=== PATIENT | male | born 1995 | race Caucasian/White ===

== ENCOUNTER 2016-11-14 20:42 | Emergency (ER) | payer BC ==
[~2016-11-14 20:42] MED LIST: AMOXICILLIN875 MG PO; ASPIR-TRIN325 M1 PO; BACTRIM DS TAB1 EACH PO
[2016-11-14 22:08] VITALS: BP 110/74
== END 2016-11-14 22:08 | disposition home or self-care (01) ==
LOC: ED 20:42
DX: S13.9XXA Sprain of joints and ligaments of unspecified parts of neck, initial encounter (principal); X50.1XXA Overexertion from prolonged static or awkward postures, initial encounter

== ENCOUNTER 2017-03-24 17:50 | Emergency (ER) | payer BC ==
[~2017-03-24] VITALS: Ht 177.8 cm; Wt 67.8 kg
[2017-03-24] MEDS ORDERED: PANTOPRAZOLE SO40 MG PO (18:01)
[2017-03-24 21:23] VITALS: BP 120/76
== END 2017-03-24 21:23 | disposition home or self-care (01) ==
LOC: ED 17:50
DX: R11.2 Nausea with vomiting, unspecified (principal); R10.12 Left upper quadrant pain; R10.13 Epigastric pain; Z87.11 Personal history of peptic ulcer disease; K59.00 Constipation, unspecified
CPT/HCPCS: C9113; J7030

== ENCOUNTER → 2017-09-29 | Outpatient (CLI) | payer BC ==
[~2017-09-29] MED LIST changes: +PANTOPRAZOLE SO40 MG PO
== END ==
LOC: LAB 13:38
DX: J02.8 Acute pharyngitis due to other specified organisms (principal)

== ENCOUNTER 2017-12-01 11:30 | Outpatient (RCR) | payer OTHER | END 2017-12-01 12:00 | disposition home or self-care (01) | LOC: PT 11:30 | DX: S93.401D Sprain of unspecified ligament of right ankle, subsequent encounter (principal); W01.0XXD Fall on same level from slipping, tripping and stumbling without subsequent striking against object, subsequent encounter; W17.2XXD Fall into hole, subsequent encounter; Y99.0 Civilian activity done for income or pay ==

== ENCOUNTER → 2017-12-06 | Outpatient (CLI) | payer OTHER | LOC: RAD 06:57 | DX: S92.024A Nondisplaced fracture of anterior process of right calcaneus, initial encounter for closed fracture (principal); S90.31XA Contusion of right foot, initial encounter ==

== ENCOUNTER 2018-02-15 11:00 | Outpatient (RCR) | payer OTHER | END 2018-04-25 | disposition home or self-care (01) | LOC: PT | DX: S92.024D Nondisplaced fracture of anterior process of right calcaneus, subsequent encounter for fracture with routine healing (principal) ==

== ENCOUNTER → 2018-04-05 | Outpatient (CLI) | payer BC | LOC: RAD 09:56 | DX: R05 Cough (principal) ==

== ENCOUNTER → 2020-01-20 | Outpatient (CLI) | payer OTHER | LOC: LAB 12:41 | DX: Z20.828 Contact with and (suspected) exposure to other viral communicable diseases (principal) ==

== ENCOUNTER 2021-08-07 15:31 | Emergency (ER) | payer BC ==
[~2021-08-07] VITALS: Ht 175.3 cm; Wt 63.5 kg
[2021-08-07] MEDS ORDERED: KETOROLAC10 MG PO (16:44)
[2021-08-07 17:05] VITALS: BP 122/72
== END 2021-08-07 17:06 | disposition home or self-care (01) ==
LOC: ED 15:31
DX: S92.424A Nondisplaced fracture of distal phalanx of right great toe, initial encounter for closed fracture (principal); W20.8XXA Other cause of strike by thrown, projected or falling object, initial encounter
CPT/HCPCS: J1885; L4386

== ENCOUNTER → 2022-01-26 | Outpatient (CLI) | payer BC ==
[~2022-01-26] MED LIST changes: +KETOROLAC10 MG PO
== END ==
LOC: RAD 16:28
DX: M25.561 Pain in right knee (principal)

== ENCOUNTER → 2022-06-08 | Outpatient (CLI) | payer BC | LOC: RAD 11:02 | DX: M25.511 Pain in right shoulder (principal) ==

== ENCOUNTER → 2022-10-25 | Outpatient (CLI) | payer OTHER | LOC: LAB 08:02 | DX: J02.9 Acute pharyngitis, unspecified (principal); Z20.822 Contact with and (suspected) exposure to COVID-19 ==